=== PATIENT | female | born 1995 | race Caucasian/White ===

== ENCOUNTER 2018-09-18 16:38 | Emergency (ER) | payer OTHER ==
[~2018-09-18] VITALS: Ht 167.6 cm; Wt 58.1 kg
[2018-09-18 16:48] VITALS: Ht 167.6 cm; Wt 58.1 kg
[2018-09-18 19:04] LABS: AMPHETAMINE QUAL UR NONE DETECTED (See below)
[2018-09-18 23:38] VITALS: BP 121/60
== END 2018-09-18 23:38 | disposition home or self-care (01) ==
LOC: ED 16:38
PROVIDERS: Specialist
DX: O99.345 Other mental disorders complicating the puerperium (principal); F53.0 Postpartum depression; O26.891 Other specified pregnancy related conditions, first trimester; J45.909 Unspecified asthma, uncomplicated; Z3A.08 8 weeks gestation of pregnancy
CPT/HCPCS: 36415; G0480; Q0162